=== PATIENT | female | born 1975 | race Caucasian/White ===

== ENCOUNTER 2018-08-05 07:47 | Emergency (ER) | payer BC ==
--- OUTSIDE RECORDS SUMMARY | 2018-08-05 07:58 | XMS REPORT | Continuity of Care Document ---
:1975 External Reference #:[id number] Author Name Rhoda Banks MPA Address [address] [facility] [place] [address] Care Team Providers Name Role Phone Lucian Bentley M.D. Care Team Information Videotape Operator Unavailable Lucian Bentley M.D. Primary Care Physician Unavailable Payers Type Date Identification Numbers Payment Provider Subscriber Effective: 2018 Policy Number: [id number] Esau BC/BS November Roger PayID: [id number] [address] [address] [place] [address] Advance Directives Description No Information Available Problems Date Description Provider Status Onset: 05/01/2010 Depressive disorder Sabi Barnes [employer] Active Onset: 05/01/2010 Migraine Sabi Barnes [employer] Active Onset: 08/18/2011 Tinnitus Jennifer Duarte [employer] Active Note: follows w ENT Onset: 10/14/2011 Vitamin D deficiency Jennifer Duarte [employer] Active Onset: 06/07/2012 H/O: non-drug allergy Sabi Barnes [employer] Active Note: yedanielle dye-rash and chest pain Onset: 04/19/2015 Autoimmune disorder of inner ear Wilfred Kaye M.D. Active Onset: 05/24/2015 Iron deficiency anemia secondary to Rhoda Banks MPA Active inadequate dietary iron intake Note: followed by hematology/oncology. Onset: 06/18/2017 Multiple cysts of breast Rhoda Banks MPA Active Note: aspiration with breast clinic Onset: 11/11/2017 Supraventricular premature beats Jadon James Active Note: normal stress echo. Family History Date Family Member(s) Problem(s) Comments Father Hypertension Father vitamin b12 deficency. Mother Hypertension Mother Hypothyroidism Onset: (12/14/2014) First Sister positive factor v leiden : (age 63 Years) Grandfather due to [place] Grandmother Diabetes Mellitus Type 2 Uncle Diabetes Mellitus Type 2 Aunt Diabetes Mellitus Type 2 Social History Type Date Description Comments Sex Unknown Marital Status Legal Status: Occupation Billing dept [employer] ETOH Use Denies alcohol use Tobacco Use Reviewed: Patient has never smoked 07/13/18 Recreational Drug Use Denies Drug Use Smoking Status Reviewed: Patient has never smoked 07/13/18 Exercise Type/Frequency Does not exercise Sun Exposure 12/13/2014 Uses greater than 30 SPF Seat Belt/Car Seat Always uses seat belt Allergies, Adverse Reactions, Alerts Date Description Reaction Status Severity Comments 05/01/2010 Bactrim Nausea and Vomiting Active 05/01/2010 Codeine Active 05/01/2010 Dye, Yellow Active hives 05/01/2010 Wellbutrin Active 05/01/2010 Amoxicillin Active 05/01/2010 Darvocet Active 05/01/2010 Radha Active 05/01/2010 Effexor Active headache 05/01/2010 Cymbalta Contact dermatitis Active 05/22/2011 Zithromax Active 03/11/2015 Ferrous Sulfate Active Rash 11/15/2015 Iron rash Active oral iron Medications Medication Date Status Form Strength Qnty SIG Indications Ordering Provider Omeprazole 06/[address] 20mg 180ca Take 2 R13.19 ps Capsules Lucian Bartlett M.D. Every Day Magnesium 05/09 Active Tablets 400mg 30tab take 1 G43.909 s tablet by Lucian Bartlett M.D. daily with a meal Tizanidine HCL 05/09 Active Capsules 2mg 30cap take 1 G44.201 s capsule by Lucian nguyễn 3 Manuelito Bartlett times per day as needed for muscle spasm Topiramate 01/31 Active Tablets 25mg 720ta take 8 bs tablets by Lucian Bartlett M.D. daily Levothyroxine 02/19 Active Tablets 75mcg 90tab 1 by mouth Bentley s every day Lucian Bartlett M.D. Meclizine HCL 11/01 Active Tablets 12.5mg 40tab 1 or 2 po 386.19 s tid Sabi Moise NP-Josee Sertraline HCL 05/11 Active Tablets 50mg 360ta take 4 F32.9 bs tablets by Lucian Bartlett M.D. every day Benadryl Active Tablets 25mg 1 by mouth Barnes, as needed Sabi DANIELS Probiotic Active Capsules 1 by mouth Unknown / every day Vitamin B-2 05/09 Hx Tablets 100mg 60tab twice a G43.909 s day Lucian Bartlett M.D. 07/13 Trokendi XR 01/31 Hx Caps ER 200mg 30cap Take 1 G43.909 24HR s capsule by Lucian Bartlett M.D. 01/31 daily /2018 Melatonin 01/31 Hx Capsules 5mg 30cap @ at s bedtime Lucian Bartlett M.D. 07/13 Tizanidine HCL 10/15 Hx Capsules 2mg 30cap take 1 G44.201 s capsule by Lucian Bartlett M.D. 01/31 times per day as needed for muscle spasm Ciprofloxacin HCL 07/30 Hx Tablets 500mg 14tab one tablet R30.0 s twice a Gopi kaur for Manuelito Bartlett 08/06 seven days Mupirocin 06/12 Hx Ointment 2% 22gm apply to 704.8 [facility] affected [facility] [place] 06/19 times a day Propranolol HCL 01/29 Hx Tablets 10mg 90tab take 1 & s 08/31w - tablets by Manuelito Bartlett 11/19 twice daily Inderal 02/13 Hx Tab 90tab 1 2 po s bid Sabi Nguyễn NP-C 02/13 Inderal 11/28 Hx 10mg 90uni 1 08/31 tab 785.1 ts po bid Sabi Nguyễn NP-C 05/18 Inderal 11/01 Hx 10mg 60uni 1 po bid 785.1 ts Sabi MACEDOC 11/28 Topiramate 06/07 Hx Tablets 25mg 240ta Take 8 G43.909 Bentley bs Tablets By Lucian Bartlett M.D. 01/31 Daily /2017 Vitamin D 10/14 Hx Tablets 3000Units daily Felicia EDDIE-C - 05/18 Seroquel 06/23 Hx Tablets 50mg 30tab 1 po hs 311 s EDDIE-C - 02/24 Ergocalciferol 06/16 Hx Capsules 31820Cewx 16cap 1 cap po s qweek Sabi MACEDOC 10/14 Seroquel 05/27 Hx Tablets 25mg 30tab 1 PO hs 311 s Sabi MACEDOC 06/23 Macrobid 05/25 Hx Capsules 100mg 14cap 1 po bid 599.0 s Wilfred Nguyễn M.D. 06/01 Ciprofloxacin HCL 05/22 Hx Tablets 250mg 14tab 1 po bid 599.0 lise Nguyễn M.D. 05/25 Sertraline HCL 05/11 Hx Tablets 50mg 90tab Take 3 311 s Tablets By Sabi MACEDOC 01/09 Every Day Bupropion HCL SR 05/05 Hx Tablets ER 150mg 30tab Take 1 12HR s Tablet By Sabi MACEDOC 06/12 Morning Zoloft 05/02 Hx Tablets 50mg 90tab 3 po qd 311 s Sabi MACEDOC 06/12 Flonase 05/02 Hx Suspension 50mcg/Act 1unit 1 puff bid V15.09 s Sabi MACEDOC 02/24 Topiramate 03/31 Hx Tablets 25mg 180ta Take 6 bs Tablets By Sabi MACEDOC 06/07 Zoloft Hx Tablets 50mg 60tab 1 po bid Barnes, /0000 s Sabi Moise - [employer] 05/22 Wellbutrin SR Hx Tablets ER 150mg 30tab 1 tab po Barnes, /0000 12HR s qd qam Sabi Moise - [employer] 05/27 Methotrexate Hx Tablets 2.5mg 12tab 8 tabs 1 q Alley, /0000 s week Wilfred Nguyễn M.D. 02/24 Leucovorin Hx Solution 10mg/ml 1 q week Alley, Calcium /0000 Wilfred Nguyễn M.D. 02/24 Cellcept Hx Tablets 500mg 1 po bid Barnes, /0000 for ears Sabi Moise - [employer] 06/07 Prednisone Hx Tablets 5mg 90tab 1 po qd Barnes, /0000 s Sabi Moise - [employer] 06/07 Tramadol HCL Hx Tablets 50mg 60tab 1 po prn Barnes, /0000 s for Sabi Moise - headaches [employer] 11/19 q 6 hours /2015 Cyclosporine Hx Capsules 100mg 1 po bid Barnes, Modified /0000 Sabi Moise - [employer] 11/01 Diltiazem HCL ER Hx Caps ER 180mg 30cap Take One Barnes, /0000 24HR s Capsule By Sabi Moise - Mouth [employer] 11/28 Folic Acid Hx Capsules 5mg Unknown /0000 - 05/18 Methotrexate Hx Tablets 2.5mg 16tab 7 tabs by Unknown /0000 s mouth - every week 05/18 Cyclophosphamide Hx Capsules 50mg Take One Unknown /0000 Capsule By - Mouth 02/17 Prednisone Hx Tablets 5mg TK 3 TS PO Unknown /0000 D - 02/17 Vitamin C Hx Chewtabs 500mg Unknown /0000 - 05/09 Immunizations CPT Code Status Date Vaccine Lot # [id number] Given 05/09/2018 Influenza Virus Vaccine, Quadrivalent, Split [id number] Virus, Im Use 3 &Up [id number] Given 06/03/2012 Influenza Vaccine 91667 Given 03/25/2012 DTaP Immunization 19657 Given 05/22/2011 Pneumococcal Immunization [id number] 89393 Given 07/03/2005 Influenza Vaccine 23197 Given 06/04/2004 Influenza Vaccine 57495 Given 05/18/2002 Adacel-DTaP 11-64 Yrs Of Age 405[address] Given Unknown Influenza Vaccine Vital Signs Date Vital Result Comment 07/13/2018 2:18pm Weight 178.00 lb BP Systolic 130 mmHg BP Diastolic 60 mmHg Body Temperature 98.3 F Height 62 inches 5'2" BMI (Body Mass Index) 32.6 kg/m2 06/24/2018 1:57pm Weight 179.00 lb BP Systolic 100 mmHg BP Diastolic 64 mmHg Body Temperature 97.7 F Height 62 inches 5'2" BMI (Body Mass Index) 32.7 kg/m2 05/09/2018 2:08pm Weight 176.00 lb BP Systolic 130 mmHg BP Diastolic 70 mmHg Body Temperature 97.8 F Height 62 inches 5'2" Heart Rate 80 /min BMI (Body Mass Index) 32.2 kg/m2 Left Visual Acuity Distance 20/20 corrected color pass Right Visual Acuity Distance 20/20 Last Menstrual Period [id number] 10/15/2017 1:39pm Weight 161.00 lb BP Systolic 102 mmHg BP Diastolic 80 mmHg Body Temperature 98.5 F Height 63 inches 5'3" BMI (Body Mass Index) 28.5 kg/m2 07/30/2017 2:09pm Weight 162.00 lb BP Systolic 92 mmHg BP Diastolic 58 mmHg Body Temperature 97.8 F Height 63 inches 5'3" BMI (Body Mass Index) 28.7 kg/m2 02/17/2017 10:53am Weight 162.00 lb BP Systolic 100 mmHg BP Diastolic 60 mmHg Body Temperature 97.8 F Height 63 inches 5'3" BMI (Body Mass Index) 28.7 kg/m2 09/14/2016 3:15pm Weight 155.00 lb BP Systolic 100 mmHg BP Diastolic 60 mmHg Body Temperature 97.4 F Height 63 inches 5'3" BMI (Body Mass Index) 27.5 kg/m2 11/20/2015 9:48am Weight 151.00 lb BP Systolic 130 mmHg BP Diastolic 70 mmHg Height 63 inches 5'3" Heart Rate 80 /min Regular BMI (Body Mass Index) 26.7 kg/m2 Left Visual Acuity Distance 20/25 Non Corrected Sees Color Right Visual Acuity Distance 20/25 03/05/2015 10:47am Weight 146.00 lb BP Systolic 100 mmHg BP Diastolic 70 mmHg Body Temperature 98.0 F Height 63 inches 5'3" BMI (Body Mass Index) 25.9 kg/m2 12/14/2014 10:08am Weight 145.00 lb BP Systolic 110 mmHg BP Diastolic 70 mmHg Body Temperature 99.0 F Height 63 inches 5'3" BMI (Body Mass Index) 25.7 kg/m2 06/12/2014 1:44pm Weight 141.00 lb BP Systolic 110 mmHg BP Diastolic 64 mmHg Body Temperature 98.5 F Height 63 inches 5'3" BMI (Body Mass Index) 25.0 kg/m2 05/18/2014 8:59am Weight 140.00 lb BP Systolic 90 mmHg BP Diastolic 66 mmHg Body Temperature 99.4 F Height 63 inches 5'3" BMI (Body Mass Index) 24.8 kg/m2 09/15/2013 4:13pm Weight 140.00 lb BP Systolic 98 mmHg BP Diastolic 66 mmHg Body Temperature 98.0 F Height 63 inches 5'3" BMI (Body Mass Index) 24.8 kg/m2 01/09/2013 9:35am Weight 134.00 lb BP Systolic 90 mmHg BP Diastolic 58 mmHg Body Temperature 99.7 F Height 63 inches 5'3" BMI (Body Mass Index) 23.7 kg/m2 11/28/2012 1:34pm Weight 135.00 lb BP Systolic 106 mmHg BP Diastolic 66 mmHg Body Temperature 98.1 F Height 63 inches 5'3" BMI (Body Mass Index) 23.9 kg/m2 11/01/2012 10:32am Weight 135.00 lb BP Systolic 110 mmHg BP Diastolic 58 mmHg Body Temperature 99.1 F Height 63 inches 5'3" BMI (Body Mass Index) 23.9 kg/m2 06/07/2012 9:35am Weight 140.00 lb BP Systolic 119 mmHg BP Diastolic 68 mmHg Body Temperature 98.1 F Height 63 inches 5'3" Heart Rate 73 /min BMI (Body Mass Index) 24.8 kg/m2 02/25/2012 11:24am Weight 142.00 lb BP Systolic 98 mmHg BP Diastolic 58 mmHg Body Temperature 99.1 F Height 63 inches 5'3" Heart Rate 56 /min BMI (Body Mass Index) 25.2 kg/m2 Last Menstrual Period [id number] 2 Parity 2 11/30/2011 12:58pm Weight 144.00 lb BP Systolic 110 mmHg BP Diastolic 68 mmHg Body Temperature 97.9 F Height 63 inches 5'3" BMI (Body Mass Index) 25.5 kg/m2 10/14/2011 10:02am Weight 142.00 lb BP Systolic 100 mmHg BP Diastolic 60 mmHg Body Temperature 98.0 F Height 63 inches 5'3" BMI (Body Mass Index) 25.2 kg/m2 10/01/2011 8:48am Weight 138.25 lb BP Systolic 98 mmHg BP Diastolic 60 mmHg Body Temperature 99.0 F Height 63 inches 5'3" Heart Rate 76 /min BMI (Body Mass Index) 24.5 kg/m2 06/12/2011 11:18am Weight 137.00 lb BP Systolic 100 mmHg BP Diastolic 70 mmHg Body Temperature 99.2 F Height 63 inches 5'3" BMI (Body Mass Index) 24.3 kg/m2 05/27/2011 11:48am Weight 135.00 lb BP Systolic 96 mmHg BP Diastolic 58 mmHg Height 63 inches 5'3" Heart Rate 72 /min BMI (Body Mass Index) 23.9 kg/m2 05/22/2011 9:36am Weight 135.00 lb BP Systolic 96 mmHg BP Diastolic 70 mmHg Body Temperature 98.3 F Height 63 inches 5'3" BMI (Body Mass Index) 23.9 kg/m2 05/02/2010 11:21am Weight 133.00 lb BP Systolic 110 mmHg BP Diastolic 68 mmHg Results Test Date Facility Test Result H/L Range Note CMP 05/05/2018 [facility] Sodium 147 mmol/L High (136-145) Potassium 3.9 mmol/L (3.6-5.2) Chloride 112 mmol/L High (100-108) Co2 23 mmol/L (22-31) Anion Gap 12 mmol/L (7-16) Urea Nitrogen 15 mg/dL (7-24) Creatinine 0.84 mg/dL (0.60-1.00) BUN/Creat Ratio 17.9 RATIO (10.0-20.0) Glucose 88 mg/dL (70-99) 1 Calcium 8.6 mg/dL (8.4-10.2) Total Protein 7.0 g/dL (6.4-8.2) Albumin 4.3 g/dL (3.5-4.6) Globulin 2.7 g/dL (2.7-4.3) Alb/Glob Ratio 1.6 RATIO Alkaline Phosphatase 91 U/L (45-117) Bilirubin,Total 0.7 mg/dL (0.0-1.0) Ast (Sgot) 11 U/L (11-39) Alt (SGPT) 15 U/L (12-78) GFR >60 ml/min/1.73m2 (>59) GFR ( Amer) >60 ml/min/1.73m2 (>59) GFR Interpretation <SEE NOTE> 2 Thyroid 05/05/2018 [facility] TSH,Ultrasensitive @ 2.120 (0.360-4.170 ) [place] @ mIU/L Lipid 05/05/2018 [facility] Cholesterol @ 239 mg/dL High (0-200) Triglyceride @ 123 mg/dL (30-200) 3 HDL Cholesterol @ 57 mg/dL (>40) 4 Chol/HDL Ratio 4.2 RATIO 5 LDL Chol (Calc) 157 mg/dL High (<130) 6 CBC With Diff 05/05/2018 [facility] WBC 3.2 10*3/uL Low (4.1-11.0) RBC 4.51 10*6/uL (4.00-5.40) HGB 13.5 g/dL (12.0-16.0) HCT 41.8 % (36.0-47.0) MCV 92.6 fL (80.0-95.0) MCH 29.9 pg (27.0-32.0) MCHC 32.3 g/dL (32.0-36.0) RDW 13.4 % (10.5-14.5) PLT 195 10*3/uL (150-450) MPV 8.1 fL (7.1-10.7) Neut % 53.7 % (35.0-75.0) Lymph % 31.0 % (16.0-52.0) Craven % 8.4 % High (0.0-8.0) Eos % 5.6 % High (0.0-5.0) Baso % 1.3 % (0.0-4.0) Neut # 1.7 10*3/uL Low (1.8-7.7) Lymph # 1.0 10*3/uL Low (1.2-4.8) Craven # 0.3 10*3/uL (0.0-0.8) Eos # 0.2 10*3/uL (0.0-0.5) Baso # 0.0 10*3/uL (0.0-0.2) Laboratory 10/06/2017 [facility] TSH,Ultrasensitive @ 2.410 mIU/L ( 0.360-4.170) test finding Laboratory 07/30/2017 [facility] Urine Culture SPECIMEN 7 test finding DESCRI> Laboratory 05/28/2017 [facility] TSH,Ultrasensitive @ 1.800 mIU/L ( 0.360-4.170) test finding Laboratory 04/02/2017 [facility] TSH,Ultrasensitive @ 2.710 mIU/L ( 0.360-4.170) 8 test finding Free Thyroxine @ 0.79 ng/dL (0.76-1.46) Thyroid Antibody And 04/02/2017 [facility] Thyroglobulin AB @ 41 IU/mL High (<40) Peroxidase Thyr Peroxidase AB @ >1000 IU/mL High (<35) Laboratory test 02/17/2017 [facility] Magnesium 2.5 mg/dL High (1.7-2.4 ) 9 finding CBC With Diff 02/17/2017 [facility] WBC 4.0 10*3/uL Low (4.1-11.0) RBC 3.75 10*6/uL Low (4.00-5.40) HGB 12.3 g/dL (12.0-16.0) HCT 36.5 % (36.0-47.0) MCV 97.3 fL High (80.0-95.0) MCH 32.8 pg High (27.0-32.0) MCHC 33.7 g/dL (32.0-36.0) RDW 13.7 % (10.5-14.5) PLT 145 10*3/uL Low (150-450) MPV 8.3 fL (7.1-10.7) Neut % 41.8 % (35.0-75.0) Lymph % 41.4 % (16.0-52.0) Craven % 8.1 % High (0.0-8.0) Eos % 7.6 % High (0.0-5.0) Baso % 1.1 % (0.0-4.0) Neut # 1.7 10*3/uL Low (1.8-7.7) Lymph # 1.6 10*3/uL (1.2-4.8) Craven # 0.3 10*3/uL (0.0-0.8) Eos # 0.3 10*3/uL (0.0-0.5) Baso # 0.0 10*3/uL (0.0-0.2) CMP 02/17/2017 [facility] Sodium 143 mmol/L (136-145) Potassium 3.4 mmol/L Low (3.6-5.2) Chloride 109 mmol/L High (100-108) Co2 25 mmol/L (22-31) Anion Gap 9 mmol/L (7-16) Urea Nitrogen 10 mg/dL (7-24) Creatinine 0.78 mg/dL (0.60-1.00) BUN/Creat Ratio 12.8 RATIO (10.0-20.0) Glucose 72 mg/dL (70-99) Calcium 9.1 mg/dL (8.4-10.2) Total Protein 7.7 g/dL (6.4-8.2) Albumin 4.8 g/dL High (3.5-4.6) Globulin 2.9 g/dL (2.7-4.3) Alb/Glob Ratio 1.7 RATIO Alkaline Phosphatase 61 U/L (45-117) Bilirubin,Total 0.8 mg/dL (0.0-1.0) Ast (Sgot) 14 U/L (11-39) Alt (SGPT) 22 U/L (12-78) GFR >60 ml/min/1.73m2 (>59) GFR ( Amer) >60 ml/min/1.73m2 (>59) GFR Interpretation <SEE NOTE> 10 Laboratory 02/17/2017 [facility] TSH,Ultrasensitive @ 109.000 High ( 0.360-4.170) 11 test finding mIU/L Iron Panel 12/14/2014 [facility] Iron,Total @ 67 g/dL (35-150) Uibc @ 344 g/dL (130-375) Tibc @ 411 g/dL (250-450) % Saturation 16 % (12-50) Laboratory test finding 12/14/2014 [facility] Folate @ 16.5 ng/mL (3.1 -17.5) Vitamin B12 @ 279 pg/mL (193-986) CBC With Diff 12/14/2014 [facility] WBC 4.1 10*3/uL (4.1-11.0) RBC 3.92 10*6/uL Low (4.00-5.40) HGB 11.3 g/dL Low (12.0-16.0) HCT 35.0 % Low (36.0-47.0) MCV 89.5 fL (80.0-95.0) MCH 28.9 pg (27.0-32.0) MCHC 32.3 g/dL (32.0-36.0) RDW 17.4 % High (10.5-14.5) PLT 224 10*3/uL (150-450) MPV 8.2 fL (7.1-10.7) Neut % 54.0 % (35.0-75.0) Lymph % 34.0 % (16.0-52.0) Craven % 7.1 % (0.0-8.0) Eos % 4.2 % (0.0-5.0) Baso % 0.7 % (0.0-4.0) Neut # 2.2 10*3/uL (1.8-7.7) Lymph # 1.4 10*3/uL (1.2-4.8) Craven # 0.3 10*3/uL (0.0-0.8) Eos # 0.2 10*3/uL (0.0-0.5) Baso # 0.0 10*3/uL (0.0-0.2) Retic Count 12/14/2014 [facility] Retic % 0.7 % (0.6-2.1) Retic Index 0.6 % (0.5-1.9) Absolute Retic 0.03 10*6/uL (0.027-0.101) CMP 12/14/2014 [facility] Sodium 142 mmol/L (136-145) Potassium 3.6 mmol/L (3.6-5.2) Chloride 110 mmol/L High (100-108) Co2 24 mmol/L (22-31) Anion Gap 8 mmol/L (7-16) Urea Nitrogen 12 mg/dL (7-24) Creatinine 0.9 mg/dL (0.6-1.0) BUN/Creat Ratio 13.3 RATIO (10.0-20.0) Glucose 105 mg/dL High (70-99) Calcium 8.2 mg/dL Low (8.4-10.2) Total Protein 6.9 g/dL (6.4-8.2) Albumin 3.9 g/dL (3.5-4.6) Globulin 3.0 g/dL (2.7-4.3) Alb/Glob Ratio 1.3 RATIO Alkaline Phosphatase 60 U/L (45-117) Bilirubin,Total 0.5 mg/dL (0.0-1.0) Ast (Sgot) 16 U/L (11-39) Alt (SGPT) 15 U/L (12-78) GFR 73 ml/min/1.73m2 (>59) GFR ( Amer) 89 ml/min/1.73m2 (>59) GFR Interpretation <SEE NOTE> 12 CBC With Diff 05/18/2014 [facility] WBC 4.7 10*3/uL (4.1-11.0) RBC 4.14 10*6/uL (4.00-5.40) HGB 11.7 g/dL Low (12.0-16.0) HCT 34.8 % Low (36.0-47.0) MCV 84.1 fL (80.0-95.0) MCH 28.2 pg (27.0-32.0) MCHC 33.5 g/dL (32.0-36.0) RDW 16.3 % High (10.5-14.5) PLT 175 10*3/uL (150-450) MPV 8.3 fL (7.1-10.7) Neut % 52.5 % (35.0-75.0) Lymph % 33.3 % (16.0-52.0) Craven % 8.6 % High (0.0-8.0) Eos % 4.5 % (0.0-5.0) Baso % 1.1 % (0.0-4.0) Neut # 2.5 10*3/uL (1.8-7.7) Lymph # 1.6 10*3/uL (1.2-4.8) Craven # 0.4 10*3/uL (0.0-0.8) Eos # 0.2 10*3/uL (0.0-0.5) Baso # 0.1 10*3/uL (0.0-0.2) CMP 05/18/2014 [facility] Sodium 140 mmol/L (136-145) Potassium 4.0 mmol/L (3.6-5.2) Chloride 110 mmol/L High (100-108) Co2 20 mmol/L Low (22-31) Anion Gap 10 mmol/L (7-16) Urea Nitrogen 17 mg/dL (7-24) Creatinine 0.9 mg/dL (0.6-1.0) BUN/Creat Ratio 18.9 RATIO (10.0-20.0) Glucose 79 mg/dL (70-99) 13 Calcium 8.5 mg/dL (8.4-10.2) Total Protein 6.9 g/dL (6.4-8.2) Albumin 4.1 g/dL (3.5-4.6) Globulin 2.8 g/dL (2.7-4.3) Alb/Glob Ratio 1.5 RATIO Alkaline Phosphatase 51 U/L (45-117) 14 Bilirubin,Total 0.4 mg/dL (0.0-1.0) Ast (Sgot) 7 U/L Low (11-39) Alt (SGPT) 11 U/L Low (12-78) GFR 73 ml/min/1.73m2 (>59) GFR ( Amer) 89 ml/min/1.73m2 (>59) GFR Interpretation <SEE NOTE> 15 Lipid 05/18/2014 [facility] Cholesterol @ 190 mg/dL (0-200) Triglyceride @ 130 mg/dL (30-200) 16 HDL Cholesterol @ 50 mg/dL (>40) 17 Chol/HDL Ratio 3.8 RATIO 18 LDL Chol (Calc) 114 mg/dL (<130) 19 Laboratory 05/18/2014 [facility] TSH,Ultrasensitive @ 1.730 (0.360- 4.170) test finding mIU/L Laboratory 02/25/2012 [facility] TSH,Ultrasensitive @ 1.410 (0.360- 4.170) test finding mIU/L Egfr 06/12/2011 [facility] Estimated GFR (CALCULAT (Calculated) ED) Egfr >60 20 Egfr, -Zambian >60 21 Laboratory test 06/12/2011 [facility] TSH Ultrasensitive 2.330 uIU/mL 0.450 -4.500 finding Vitamin D, 25 Oh 18.8 ng/mL Low 32.0-100.0 22 Lipid Panel 06/12/2011 [facility] Cholesterol, Total 159 mg/dL <200 Triglycerides 60 mg/dL <150 HDL Cholesterol 53 mg/dL 40-60 Chol/HDL Cholesterol 3.0 23 LDL Cholesterol, Calc. 94 mg/dL 24 LDL/HDL Cholesterol 1.8 25 CBC 06/12/2011 [facility] WBC 4.7 x10E3/uL 4.3-10.9 RBC 4.04 x10E6/uL 3.80-5.30 Hemoglobin 11.6 g/dL Low 11.8-15.8 Hematocrit 36.5 % 35.0-47.0 MCV 90.3 fl 82.0-98.0 MCH 28.7 pg 27.5-33.5 MCHC 31.8 g/dL Low 32.0-36.0 RDW 15.2 % High 11.5-14.5 Platelet Count 190 x10E3/uL 130-400 MPV 10.9 fl High 6.5-10.5 Segmented Neutrophils 54.9 % 44.0-74.0 Lymphocytes 33.8 % 15.0-45.0 Monocytes 6.5 % 2.0-13.0 Eosinophils 4.0 % 0.0-6.0 Basophils 0.8 % 0.0-2.0 Neutrophil Absolute 2.6 x10E3/uL 1.4-7.0 Lymphocytes Absolute 1.6 x10E3/uL 1.0-3.4 Monocyte Absolute 0.3 x10E3/uL 0.2-1.0 Eosinophil Absolute 0.2 x10E3/uL 0.0-0.5 Basophil Absolute 0.0 x10E3/uL 0.0-0.2 Comprehensive Metabolic 06/12/2011 [facility] Glucose 116 mg/dL High 70-100 BUN 13 mg/dL 4-18 Creatinine, Serum 0.89 mg/dL 0.50-1.10 Sodium 142 mmol/L 136-146 Potassium 3.6 mmol/L 3.5-5.3 Chloride 112 mmol/L High 98-110 Carbon Dioxide 20 mmol/L 20-32 Albumin 4.5 g/dL 3.5-4.7 Protein, Total 6.8 g/dL 6.4-8.3 Calcium 9.1 mg/dL 8.4-10.4 Alkaline Phosphatase 49 U/L 10-118 Sgot (Ast) 16 U/L 3-40 SGPT (Alt) 14 U/L 7-50 Bilirubin, Total 0.40 mg/dL 0.30-1.20 Laboratory test 05/22/2011 [facility] Urine Culture Escherichia coli 26 finding Laboratory test 04/01/2009 [facility] Thin Prep SEE NOTE 27 finding W/HPV(Lsil/YEHUDA /Asc) Laboratory test 06/20/2007 [facility] TSH 2.260 uIU/ml 0.350-5 finding (Thyrotropin) .500 Comprehensive 12/24/2006 [facility] Glucose 94 mg/dL 70-100 Metabolic BUN 12 mg/dL 4-18 Creatinine, Serum 0.9 mg/dL 0.5-1.2 Sodium 139 mmol/L 136-146 Potassium 3.7 mmol/L 3.5-5.3 Chloride 112 mmol/L High 98-110 Carbon Dioxide 20 mmol/L 20-32 Albumin 4.4 g/dL 3.5-4.7 Protein, Total 6.7 g/dL 6.4-8.2 Calcium 8.8 mg/dL 8.4-10.4 Alkaline Phosphatase 45 U/L 10-118 Sgot (Ast) 16 U/L 3-40 SGPT (Alt) 11 U/L 7-50 Bilirubin, Total 0.70 mg/dL 0.30-1.20 Laboratory test 12/24/2006 [facility] Cholesterol, Total 145 mg/dL 120-200 28 finding CBC 12/24/2006 [facility] WBC 4.0 x103 Low 4.3-10.9 RBC 3.97 x106 3.80-5.30 Hemoglobin 11.9 g/dL 11.8-15.8 Hematocrit 34.8 % Low 35.0-47.0 MCV 87.5 fl 82.0-98.0 MCH 29.9 pg 27.5-33.5 MCHC 34.1 g/dL 32.0-36.0 RDW 14.1 % 11.5-14.5 Platelet Count 222 x103 130-400 MPV 7.6 fl 6.5-10.5 Segmented Neutrophils 55.6 % 44.0-74.0 Lymphocytes 34.3 % 15.0-45.0 Monocytes 5.6 % 2.0-13.0 Eosinophils 4.3 % 0.0-6.0 Basophils 0.2 % 0.0-2.0 Neutrophil Absolute 2.2 x103 1.4-7.0 Lymphocytes Absolute 1.4 x103 1.0-3.4 Monocyte Absolute 0.2 x103 0.2-1.0 Eosinophil Absolute 0.2 x103 0.0-0.5 Basophil Absolute 0.0 x103 0.0-0.2 Laboratory test 12/24/2006 [facility] TSH (Thyrotropin) 2.150 uIU/ml 0.350- 5.500 finding T-3 Total 113.3 ng/dL 87.0-216.0 T-4 Free 0.8 ng/dL 0.8-1.8 GFR (Calculated) >60 29 1 FASTING 2 NORMAL KIDNEY FUNCTION OR MILD DISEASE - GFR >OR=60 CHRONIC KIDNEY DISEASE - GFR 15 - 59 RENAL FAILURE - GFR <15 Est. GFR calculation based on the MDRD study equation, which assumes a steady state for creatinine. Est. GFR should not be used for medication dosing. 3 FASTING 4 PER NCEP ATP III GUIDELINES: RESULTS LOWER THAN 40 MG/DL ARE SUGGESTIVE OF INCREASED RISK FOR CORONARY ARTERY DISEASE. RESULTS > OR=TO 60 MG/DL ARE CONSIDERED A NEGATIVE RISK FACTOR. 5 INTERPRETATION OF CHOL-HDL RATIO CHD RISK FEMALE MALE VERY HIGH >8.3 >14.3 HIGH 5.6- 8.3 6.7- 14.3 AVERAGE 3.7- 5.6 4.0- 6.7 BELOW AVERAGE 2.5- 3.7 2.7- 4.0 PROTECTED <2.5 <2.7 6 PER NCEP ATP III GUIDELINES: OPTIMAL < 100 NEAR OPTIMAL 100 - 129 BORDERLINE HIGH 130 - 159 HIGH 160 - 189 VERY HIGH > 189 7 SPECIMEN DESCRIPTION URINE, COLLECTION METHOD NOT SPECIFIED CULTURE RESULTS >100,000 CFU/ML ESCHERICHIA COLI REPORT STATUS FINAL 08/01/2017 ORGANISM ESCHERICHIA COLI METHOD RELL AMIKACIN <=2 SUSCEPTIBLE AMOXICILLIN/CLAVULANIC AC <=2/1 SUSCEPTIBLE AMPICILLIN 4 SUSCEPTIBLE ISOLATES SUSCEPTIBLE TO AMPICILLIN ARE ALSO SUSCEPTIBLE TO AMOXICILLIN. CEFAZOLIN <=4 SUSCEPTIBLE FOR UNCOMPLICATED UTI'S,CEFAZOLIN RELL RESULTS LESS THAN OR EQUAL TO 16 MCG/ML PREDICT SUSCEPTIBILITY OF THE FOLLOWING ORAL CEPHALOSPORINS:CEFACLOR,CEFDINIR, CEFPODOXIME,CEFPROZIL,CEFUROXIME AND CEPHALEXIN. CEFEPIME <=1 SUSCEPTIBLE CEFOXITIN <=4 SUSCEPTIBLE CEFTAZIDIME <=1 SUSCEPTIBLE CEFTRIAXONE <=1 SUSCEPTIBLE CIPROFLOXACIN <=0.25 SUSCEPTIBLE GENTAMICIN <=1 SUSCEPTIBLE LEVOFLOXACIN <=0.12 SUSCEPTIBLE NITROFURANTOIN <=16 SUSCEPTIBLE PIPERACILLIN/TAZOBACTAM <=4 SUSCEPTIBLE TETRACYCLINE <=1 SUSCEPTIBLE TOBRAMYCIN <=1 SUSCEPTIBLE TRIMETH/SULFA <=1/19 SUSCEPTIBLE ERTAPENEM <=0.5 SUSCEPTIBLE 8 results to patient repeat 6 months. sooner if symptoms persist. LO. 9 RESULTS DISCUSSED WITH THE PATIENT - START LEVOTHYROXINE. RECHECK 6 WEEKS. LO. 10 NORMAL KIDNEY FUNCTION OR MILD DISEASE - GFR >OR=60 CHRONIC KIDNEY DISEASE - GFR 15 - 59 RENAL FAILURE - GFR <15 Est. GFR calculation based on the MDRD study equation, which assumes a steady state for creatinine. Est. GFR should not be used for medication dosing. 11 RESULT VERIFIED BY REPEAT TESTING. 12 NORMAL KIDNEY FUNCTION OR MILD DISEASE - GFR >OR=60 CHRONIC KIDNEY DISEASE - GFR 15 - 59 RENAL FAILURE - GFR <15 Est. GFR calculation based on the MDRD study equation, which assumes a steady state for creatinine. Est. GFR should not be used for medication dosing. 13 FASTING 14 NOTE: [facility] METHOD AND REFERENCE RANGE EFFECTIVE 13 15 NORMAL KIDNEY FUNCTION OR MILD DISEASE - GFR >OR=60 CHRONIC KIDNEY DISEASE - GFR 15 - 59 RENAL FAILURE - GFR <15 Est. GFR calculation based on the MDRD study equation, which assumes a steady state for creatinine. Est. GFR should not be used for medication dosing. 16 FASTING 17 PER NCEP ATP III GUIDELINES: RESULTS LOWER THAN 40 MG/DL ARE SUGGESTIVE OF INCREASED RISK FOR CORONARY ARTERY DISEASE. RESULTS > OR=TO 60 MG/DL ARE CONSIDERED A NEGATIVE RISK FACTOR. 18 INTERPRETATION OF CHOL-HDL RATIO CHD RISK FEMALE MALE VERY HIGH >8.3 >14.3 HIGH 5.6- 8.3 6.7- 14.3 AVERAGE 3.7- 5.6 4.0- 6.7 BELOW AVERAGE 2.5- 3.7 2.7- 4.0 PROTECTED <2.5 <2.7 19 PER NCEP ATP III GUIDELINES: OPTIMAL < 100 NEAR OPTIMAL 100 - 129 BORDERLINE HIGH 130 - 159 HIGH 160 - 189 VERY HIGH > 189 20 >59 mL/min/1.73m2 21 >59 mL/min/1.73m2 Note: Persistent reduction for 3 months or more in an eGFR <60 mL/min/1.73m2 defines CKD. Patients with eGFR values >=60 mL/min/1.73m2 may also have CKD if evidence of persistent proteinuria is present. Additional information may be found at www.kidney.org/professionals/kdoqi. 22 Effective July 20, 2011 Vitamin D, 25-Hydroxy reference intervals will be changing to 30-100. . Recent studies consider the lower limit of 32.0 ng/mL to be a threshold for optimal health. Saul RUIZ. J Nutr. 2005 Feb;135(2):317-22. 23 CHOL/HDL Risk Ratio Levels MALE FEMALE 1/2 X Average 3.4 3.3 Average 5.0 4.4 2 X Average 9.5 7.0 3 X Average 24.0 11.0 24 Optimal under 100 mg/dl Near or above Optimal 100 - 129 mg/dl Borderline High 130 - 159 mg/dl High 160 - 189 mg/dl Very High above 190 mg/dl 25 LDL/HDL Risk Ratio Levels MALE FEMALE 1/2 X Average 1.0 1.5 Average 3.6 3.2 2 X Average 6.3 5.0 3 X Average 8.0 6.1 26 Escherichia coli >100,000 col/ml URINE CULTURE organism 1 Escherichia coli >100,000 col/ml Meropenem <=0.25 Susceptible Ertapenem <=0.5 Susceptible Amikacin 4 Susceptible Amoxicillin/CA 8 Susceptible Ampicillin >=32 Resistant Aztreonam <=1 Susceptible Cefazolin <=4 Susceptible Ciprofloxacin >=4 Resistant Gentamicin <=1 Susceptible Imipenem <=1 Susceptible Levofloxacin >=8 Resistant Nitrofurantoin <=16 Susceptible Tetracycline <=1 Susceptible Trimethoprim/Sulfa <=20 Susceptible 27 [facility] [employer] DEPARTMENT OF PATHOLOGY or Extension [address] [facility] FACULT[employer] ASSISTANT CYTOLOGY REPORT PATIENT: ROGER November : 1975 AGE: 33 Y SEX: F ACCT: [id number] PROCEDURE DATE: 04/01/2009 DATE RECEIVED: 04/02/2009 REQUESTING PHYSICIAN: SABI BARNES NP LOCATION: [facility] Case No. [id number] PATIENT DATA: [id number] SPECIMEN SUBMITTED: * * (HPVII) THIN PREP W/HPV (LSIL/ASC/YEHUDA) * * VAGINAL RELEVANT HISTORY: LMP: ??/??/1999 : 2 Para: 2 Comment: HYSTERECTOMY 1999 (ONLY OVARIES REMAIN) SPECIMEN ADEQUACY SATISFACTORY FOR EVALUATION GENERAL CATEGORIZATION NEGATIVE FOR INTRAEPITHELIAL LESIONS OR MALIGNANCY ADDITIONAL COPIES SENT TO: Screened/Rescreened by: Electronically Signed by: CANDICE EVANS(ASCP) Signed Date and Time: 04/03/2009 14:01 Thin Prep Pap tests are examined with an FDA-approved location-guidance system (97635). Performed @ [facility], [address] [place] [address] "" 28 Cholesterol Risk Levels (NIH) Recommended: under 200 mg/dl Borderline : 200-239 mg/dl High Risk : Above 240 mg/dl 29 mL/min/1.73m2 . Normal Function or Mild Renal Disease, if clinically at risk: >or=60 Moderately decreased: 30 - 59 Severely decreased: 15 - 29 Renal Failure: <15 . Please note that the MDRD equation requires an additional adjustment for -Americans (multiply the GFR result by 1.210). . Glomerular Filtration Rate (GFR) is estimated based on the MDRD equation, which assumes a steady state for creatinine ([place] Int Med 139/2 137-149, 2003), as recommended by the National Kidney Disease Education Program in conjunction with the National Institutes of Health and the National Kidney Foundation. . Clinical conditions in which it may be necessary to measure GFR by using clearance methods include extremes of age and body size, severe malnutrition or obesity, diseases of skeletal muscle, paraplegia or quadriplegia, vegetarian diet, rapidly changing kidney function, and calculation of the dose of potentially toxic drugs that are excreted by the kidneys. . Procedures Date Code Description Status 10/29/2017 [id number] Mammogram Completed 02/17/2017 72524 Electrocardiogram Complete Completed 11/01/2012 22349 Electrocardiogram Complete Completed 02/25/2012 49460 Electrocardiogram Complete Completed 11/30/2011 93166 Electrocardiogram Complete Completed 11/23/2008 48206 Audiogram/Pure Tone Hearing Test Completed 03/18/2007 78307 Electrocardiogram Complete Completed 12/24/2006 00845 Electrocardiogram Complete Completed Encounters Type Date Location Provider Dx Diagnosis Office Visit 06/24/2018 2:10p Main Office Rhoda Banks, R13.19 Other dysphagia MPA E66.9 Obesity, unspecified Office Visit 05/09/2018 2:00p Main Office Rhoda Banks, Z00.01 Encounter for MPA general adult medical exam w abnormal findings G43.909 Migraine, unsp, not intractable, without status migrainosus F32.9 Major depressive disorder, single episode, unspecified D72.819 Decreased white blood cell count, unspecified G44.201 Tension-type headache, unspecified, intractable E03.9 Hypothyroidism, unspecified M72.2 Plantar fascial fibromatosis E66.3 Overweight Z23 Encounter for immunization Office Visit 10/15/2017 1:40p Main Office Rhoda Banks J02.9 Acute pharyngitis, M., MPA unspecified G44.201 Tension-type headache, unspecified, intractable E66.3 Overweight Office Visit 07/30/2017 2:20p Main Office Rhoda Banks, MPA R30.0 Dysuria R00.2 Palpitations E66.3 Overweight Office Visit 02/17/2017 11:00a Main Office Rhoda Banks, MPA R00.2 Palpitations R11.2 Nausea with vomiting, unspecified Office Visit 09/14/2016 3:30p Main Office Rhoda Banks F32.9 Major depressive M., MPA disorder, single episode, unspecified G43.909 Migraine, unsp, not intractable, without status migrainosus Office Visit 11/20/2015 9:50a Main Office Lucian Bentley Z02.4 Encounter for Manuelito Bartlett examination for driving license Office Visit 03/05/2015 10:50a Main Office Wilfred Kaye 846.9 Sprains & Strains M.D. Sacroiliac Region Unspec Site 922.31 Contusion Back Office Visit 12/14/2014 10:00a Main Office Rhoda Banks, 285.8 Anemia Other Spec MPA Office Visit 06/12/2014 1:50p Main Office Wilfred Kaye M.D. 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 [employer] Office Visit 11/28/2012 1:30p Main Office Sabi Barnes 785.1 Palpitations B. [employer] Office Visit 11/01/2012 10:40a Main Office Sabi Barnes 386.19 Vertigo Aural & B. [employer] Otogenic Other 785.1 Palpitations Office Visit 06/07/2012 9:20a Main Office Sabi Barnes 346.90 Migraine Unspec W/O B. [employer] Intractable Office Visit 02/25/2012 11:20a Main Office Sabi Barnes 785.1 Palpitations B. [employer] Office Visit 11/30/2011 1:00p Main Office Wilfred Kaye 786.50 Pain Chest Unspec M.D. 787.20 Dysphagia Office Visit 10/14/2011 10:00a Main Office Jennifer Duarte [employer] 311 Depressive Disorder Not Elsewhere Spec 611.9 Breast Disorders Unspec Office Visit 10/01/2011 8:50a Main Office Sabi Barnes 611.9 Breast Disorders [employer] Unspec Office Visit 06/12/2011 11:00a Main Office Sabi Barnes 311 Depressive Disorder [employer] Not Elsewhere Spec Office Visit 05/27/2011 11:30a Main Office Sabi Barnes 311 Depressive Disorder [employer] Not Elsewhere Spec 300.00 Anxiety State Unspec Office Visit 05/22/2011 9:20a Main Office Wilfred Kaye 599.0 UTI Urinary Tract M.D. Infection Site Not Spec 279.49 Autoimmune Disease, Not Elsewhere Classified Office Visit 05/02/2010 11:00a Main Office Sabi Barnes 311 Depressive Disorder [employer] Not Elsewhere Spec V15.09 Allergy Other Than To Medicinal Agents Office Visit 08/09/2009 1:10p Main Office Saib Barnes 461.9 Sinusitis Acute [employer] Unspec 381.00 Otitis Media Nonsuppurative Acute Unspec Office Visit 06/28/2009 10:50a Main Office Sabi Barnes 486 Pneumonia Organism [employer] Unspec Office Visit 06/19/2009 8:30a Main Office Sabi Barnes 789.00 Pain Abdominal [employer] Unspec Site 724.2 Lumbago Office Visit 04/01/2009 8:30a Main Office Sabi Barnes V72.31 Routine Celery Wrapper [employer] Examination Office Visit 11/23/2008 3:40p Main Office Sabi Barnes 380.10 Otitis Externa [employer] Infective Unspec Office Visit 10/03/2008 8:30a Main Office Sabi Barnes 300.00 Anxiety State [employer] Unspec 311 Depressive Disorder Not Elsewhere Spec Office Visit 08/14/2008 8:30a Main Office Sabi Barnes 300.00 Anxiety State [employer] Unspec 311 Depressive Disorder Not Elsewhere Spec Office Visit 04/03/2008 9:30a Main Office Sabi Barnes 611.72 Lump Or Mass Breast B. [employer] Office Visit 01/18/2008 8:40a Main Office Sabi Barnes 611.72 Lump Or Mass Breast B. [employer] Office Visit 09/28/2007 9:50a Main Office Sabi Barnes 311 Depressive Disorder B. [employer] Not Elsewhere Spec Office Visit 07/15/2007 10:30a Main Office Sabi Barnes 616.0 Cervicitis & B. [employer] Endocervicitis 311 Depressive Disorder Not Elsewhere Spec Office Visit 06/20/2007 10:00a Main Office Sabi Barnse [employer] 724.2 Lumbago 311 Depressive Disorder Not Elsewhere Spec Office Visit 04/18/2007 11:00a Main Office Sabi Barnes [employer] 785.1 Palpitations 346.90 Migraine Unspec W/O Intractable 311 Depressive Disorder Not Elsewhere Spec Office Visit 03/18/2007 1:10p Main Office Lucian Bentley M.D. 785.1 Palpitations Office Visit 03/11/2007 10:30a Main Office Sabi Barnes [employer] 785.1 Palpitations 311 Depressive Disorder Not Elsewhere Spec 346.90 Migraine Unspec W/O Intractable Office Visit 02/14/2007 3:10p Main Office Sabi Barnes [employer] 785.1 Palpitations 311 Depressive Disorder Not Elsewhere Spec Office Visit 02/01/2007 2:40p Main Office Sabi Barnes [employer] 785.1 Palpitations 311 Depressive Disorder Not Elsewhere Spec Office Visit 01/05/2007 9:20a Main Office Sabi Barnes 300.00 Anxiety State [employer] Unspec 311 Depressive Disorder Not Elsewhere Spec 785.1 Palpitations Office Visit 12/24/2006 11:10a Main Office Sabi Barnes [employer] 785.1 Palpitations 346.90 Migraine Unspec W/O Intractable Office Visit 12/10/2006 3:00p Main Office Sabi Barnes 300.00 Anxiety State [employer] Unspec 311 Depressive Disorder Not Elsewhere Spec Office Visit 11/29/2006 10:30a Main Office Peggy Bonilla, 461.9 Sinusitis Acute M.D. Unspec 381.00 Otitis Media Nonsuppurative Acute Unspec 311 Depressive Disorder Not Elsewhere Spec Office Visit 08/04/2006 9:50a Main Office Peggy Bonilla 558.9 Gastroenteritis & F., M.D. Colitis Noninfectious Other 692.9 Dermatitis Unspec Cause Due To Spec Agents Other 924.00 Contusion Thigh 780.52 Sleep Disturbances Insomnia Other Office Visit 12/17/2005 9:50a Main Office Peggy Bonilla, 719.45 Pain Joint Pelvic M.D. Region & Thigh 477.9 Rhinitis Allergic Cause Unspec 311 Depressive Disorder Not Elsewhere Spec Office Visit 08/05/2005 4:50p Main Office Peggy Bonilla, 311 Depressive Disorder M.D. Not Elsewhere Spec 558.9 Gastroenteritis & Colitis Noninfectious Other Office Visit 07/03/2005 4:40p Main Office Peggy Bonilla, 311 Depressive Disorder M.D. Not Elsewhere Spec V04.81 Need For Prophylactic Vaccination & Inoculation/Influenza Office Visit 06/04/2004 4:50p Main Office Peggy Bonilla, 311 Depressive Disorder M.D. Not Elsewhere Spec V04.81 Need For Prophylactic Vaccination & Inoculation/Influenza Office Visit 07/02/2003 1:50p Main Office Peggy Bonilla M.D. 462 Pharyngitis Acute Plan of Treatment 07/13/2018 - Rhoda Banks, MPAR13.19 Other dysphagiaNew Xrays:Ultrasound Thyroid, Ordered: 07/13/18ollow up:results by phone.E66.9 Obesity, unspecified
[2018-08-05 08:02] VITALS: BP 121/74
--- NOTE | 2018-08-05 08:15 | UC ---
Throat Pain/Nasal Socrates HPI - HPI Summary HPI Summary: sore throat x 3 days + fever, chills, body aches no cough , no runny nose - History of Current Complaint Chief Complaint: UCGeneralIllness Stated Complaint: ST Time Seen by Provider: 08/05/18 08:08 Hx Obtained From: Patient ?: No Onset/Duration: Gradual Onset, Lasting Days - 3, Still Present Severity: Severe Pain Intensity: 8 Cough: None Associated Signs & Symptoms: Positive: Fever. Negative: Dysphagia, Wheezing, Hoarseness, Sinus Discomfort, Nasal Discharge, Vomiting, Rash - Allergies/Home Medications Allergies/Adverse Reactions: Allergies Allergy/AdvReac Type Severity Reaction Status Date / Time azithromycin Allergy Rash Verified 08/05/18 07:58 [From Zithromax Z-Luis Antonio] yellow dye Allergy Rash Verified 08/05/18 07:58 amoxicillin AdvReac Vomiting Verified 08/05/18 07:58 sulfamethoxazole AdvReac Vomiting Verified 08/05/18 07:58 [From Bactrim] trimethoprim [From Bactrim] AdvReac Vomiting Verified 08/05/18 07:58 Home Medications: Home Medications Levothyroxine TAB* [Synthroid TAB*] 75 mcg PO DAILY 08/05/18 [History Confirmed 08/05/18] Sertraline* [Zoloft*] 200 mg PO DAILY 08/05/18 [History Confirmed 08/05/18] Topiramate [Topamax] 200 mg PO DAILY 08/05/18 [History Confirmed 08/05/18] PMH/Surg Hx/FS Hx/Imm Hx Endocrine History: Thyroid Disease, Hypothyroidism Psychological History: Depression - Surgical History Surgical History: Yes Surgery Procedure, Year, and Place: hysterectomy - Family History Known Family History: Negative: Diabetes - Social History Alcohol Use: None Substance Use Type: None Smoking Status (MU): Never Smoked Tobacco Review of Systems All Other Systems Reviewed And Are Negative: Yes Constitutional: Positive: Negative Skin: Positive: Negative Eyes: Positive: Negative ENT: Positive: Sore Throat Respiratory: Positive: Negative Cardiovascular: Positive: Negative Is Patient Immunocompromised?: No Physical Exam Triage Information Reviewed: Yes Appearance: Well-Appearing, No Pain Distress, Well-Nourished Vital Signs: Initial Vital Signs Temp 98 F 08/05/18 07:57 Pulse 104 08/05/18 07:57 Resp 15 08/05/18 07:57 BP 121/74 08/05/18 07:57 Pulse Ox 98 08/05/18 07:57 Vital Signs Reviewed: Yes Eye Exam: Normal Eyes: Positive: Conjunctiva Clear ENT: Positive: Normal ENT inspection, Hearing grossly normal, Pharyngeal erythema, TMs normal. Negative: Nasal congestion, Nasal drainage, TM bulging, TM dull, TM red, Tonsillar swelling, Tonsillar exudate Neck: Positive: Supple, Nontender, No Lymphadenopathy Respiratory: Positive: Chest non-tender, Lungs clear, Normal breath sounds Cardiovascular: Positive: RRR, No Murmur, Pulses Normal Abdomen Description: Positive: Nontender, No Organomegaly, Soft. Negative: Distended, Guarding Bowel Sounds: Positive: Present Throat Pain/Nasal Course/Dx - Differential Dx/Diagnosis Provider Diagnosis: Pharyngitis Discharge - Sign-Out/Discharge Documenting (check all that apply): Patient Departure All imaging exams completed and their final reports reviewed: No Studies - Discharge Plan Condition: Stable Disposition: HOME Patient Education Materials: Pharyngitis (ED) Referrals: Rhoda Patel PA [Primary Care Provider] - If Needed - Billing Disposition and Condition Condition: STABLE Disposition: Home
== END 2018-08-05 08:27 | disposition home or self-care (01) ==
LOC: UCCORT 07:47
DX: J02.9 Acute pharyngitis, unspecified (principal); Z88.0 Allergy status to penicillin; Z88.1 Allergy status to other antibiotic agents; E03.9 Hypothyroidism, unspecified; F32.9 Major depressive disorder, single episode, unspecified
CPT/HCPCS: 87651; 99201; G0463